=== PATIENT | female | born 1985 | race Two or more races ===

== ENCOUNTER 2023-03-07 22:22 | Observation (INO) | payer MEDICAID | END 2023-03-07 22:55 | disposition left against medical advice (07) | LOC: MLD 22:22 | PROVIDERS: ADMIT Obstetrics & Gynecology; ATTEND Obstetrics & Gynecology | DX: O26.893 Other specified pregnancy related conditions, third trimester (principal); R10.9 Unspecified abdominal pain; Z3A.37 37 weeks gestation of pregnancy | CPT/HCPCS: G0378; G0379 ==